=== PATIENT | female | born 2000 | race Caucasian/White ===

== ENCOUNTER → 2021-03-30 | Outpatient (CLI) | payer BC | LOC: EXRD 09:12 | DX: R10.9 Unspecified abdominal pain (principal); K92.1 Melena; K56.41 Fecal impaction | CPT/HCPCS: 74018 ==

== ENCOUNTER 2021-08-23 15:56 | Emergency (ER) | payer OTHER ==
[2021-08-23] MEDS ORDERED: ZOFRAN ODT 4 MG4 MG SL (16:35)
== END 2021-08-23 16:44 | disposition home or self-care (01) ==
LOC: ER1 15:56
DX: Z77.21 Contact with and (suspected) exposure to potentially hazardous body fluids (principal); F17.290 Nicotine dependence, other tobacco product, uncomplicated
CPT/HCPCS: 99282